=== PATIENT | female | born 1975 | race American Indian/Alaskan Native ===

== ENCOUNTER 2022-06-05 15:54 | Emergency (ER) | payer SELFPAY ==
--- NOTE | 2022-06-05 16:25 | Event Note ---
ED Screening Note ED Screening Note: severe back pain sp fracture here for pain meds explained to pt that we would not rx LT meds tearful This initial assessment/diagnostic orders/clinical plan/treatment(s) is/are subject to change based on patients health status, clinical progression and re- assessment by fellow clinical providers in the ED. Further treatment and workup at subsequent clinical providers discretion. Patient/guardian urged not to elope from the ED as their condition may be serious if not clinically assessed and managed. Initial orders include: ft for eval
[2022-06-05] MEDS ORDERED: MORPHINE 4 MG/1 ML INJ IV ONE (21:11)
[2022-06-05] MEDS ORDERED: FAMOTIDINE 20 MG/2 ML INJ IV ONE (21:11)
[2022-06-05] MEDS ORDERED: KETOROLAC 30 MG/1 ML INJ IV ONE (21:11)
[2022-06-05] MEDS ORDERED: ONDANSETRON 4 MG/2 ML INJ IV ONE (21:11)
[2022-06-05 22:18] LABS: Basophils # (Auto) 0.1 K/mm3 (0.0-0.1); Basophils % (Auto) 0.8 % (0.0-1.8); Eosinophils # (Auto) 0.4 K/mm3 (0.0-0.4); Eosinophils % (Auto) 5.9 % (0.0-4.3); Hematocrit 39.9 % (30.3-42.9); Hemoglobin 13.2 gm/dl (10.1-14.3); Lymphocytes # (Auto) 2.4 K/mm3 (1.2-5.4); Mean Corpuscular HGB Conc 33 % (30-34); Mean Corpuscular Volume 90 fl (79-97); Monocytes # (Auto) 0.4 K/mm3 (0.0-0.8); Monocytes % (Auto) 5.7 % (0.0-7.3); Platelet Count 311 K/mm3 (140-440); Red Blood Count 4.42 M/mm3 (3.65-5.03); Red Cell Distribution Width 12.8 % (13.2-15.2)
[2022-06-05 22:28] LABS: Alanine Aminotransferase 12 units/L (7-56); Albumin 4.2 g/dL (3.9-5); BUN/Creatinine Ratio 11; Blood Urea Nitrogen 10 mg/dL (7-17); Calcium 10.1 mg/dL (8.4-10.2); Hemolysis Index 5
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
[2022-06-06 01:30] LABS: Mucus,Urine 2+ /HPF
[2022-06-06 03:03] VITALS: BP 132/84
[2022-06-06 04:19] LABS: Color,Urine Yellow (Yellow)
[2022-06-06 04:21] LABS: Bilirubin,Urine Negative (Negative); Blood,Urine Negative (Negative); Urobilinogen,Urine 0.2 mg/dL (<2.0)
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
[2022-06-06] MEDS ORDERED: oxyCODONE /ACETAMINOPHEN 5-325MG TAB PO ONE (04:30)
[2022-06-06] MEDS ORDERED: ONDANSETRON 4 MG ODT TAB PO ONE (04:30)
[2022-06-06] MEDS ORDERED: levoFLOXacin 500 MG TAB PO ONE (04:30)
== END 2022-06-06 06:01 | disposition home or self-care (01) ==
LOC: ED 15:54
DX: S22.31XA Fracture of one rib, right side, initial encounter for closed fracture (principal); S22.089A Unspecified fracture of T11-T12 vertebra, initial encounter for closed fracture; S29.012A Strain of muscle and tendon of back wall of thorax, initial encounter; M62.830 Muscle spasm of back; N39.0 Urinary tract infection, site not specified; X58.XXXA Exposure to other specified factors, initial encounter; Y93.89 Activity, other specified; Y92.89 Other specified places as the place of occurrence of the external cause; Y99.8 Other external cause status
CPT/HCPCS: 36415; 74176; 80053; 81001; 83690; 85025; 96374; 96375; 99284; J1885; J2270; J2405; J3490; Q0162